=== PATIENT | male | born 1985 | race Hispanic/Latino ===

== ENCOUNTER 2021-01-01 16:10 | Outpatient (CLI) | payer OTHER, SELFPAY | END 2021-01-01 16:11 | disposition home or self-care (01) | LOC: ANHCOVIDVC 16:11 | DX: Z23 Encounter for immunization (principal) | CPT/HCPCS: 0001A; 91300 ==

== ENCOUNTER 2021-01-22 16:03 | Outpatient (CLI) | payer OTHER, SELFPAY | END 2021-01-22 16:04 | disposition home or self-care (01) | LOC: ANHCOVIDVC 16:03 | DX: Z23 Encounter for immunization (principal) | CPT/HCPCS: 0002A; 91300 ==

== ENCOUNTER 2025-04-29 15:52 | Emergency (ER) | payer OTHER, SELFPAY ==
--- NOTE | ~2025-04-29 | XR_ITS ---
Exam: X-ray ankle right minimal and 3 views. CLINICAL HISTORY: Swelling, pain, possible infection. TECHNIQUE: 4 images of the right ankle were obtained. Comparisons: None. FINDINGS: Soft tissue swelling about the right ankle. No fracture. No dislocation. Talar dome is unremarkable. Small posterior calcaneal spur. IMPRESSION: 1. No acute bony abnormality. If symptoms persist or worsen, consider a short-term follow-up study or additional imaging for furthe r assessment. Reviewed, dictated and finalized at location A. IMPRESSION: 1. No acute bony abnormality. If symptoms persist or worsen, consider a short-term follow-up study or additio nal imaging for further assessment.
--- OUTSIDE RECORDS SUMMARY | 2025-04-29 15:54 | XMS_ITS | Clinical Summary ---
Author Organization [facility] Address [address] Attn: Epic [place] [address] Care Team Providers Care Landscape And Yardwork Laborer Name Role Phone Unavailable Primary Care Provider Unavailabl e Social History Tobacco Use Types Packs/Day Years Used Date Smoking Tobacco: Never Assessed Sex and Gender Information Value Date Recorded Sex Assigned at Not on file Legal Sex Male 11:15 PM CDT Gender Identity Not on file Sexual Orientation Not on file Plan of Treatment Health Maintenance Due Date Last Done Comments HPV VACCINES (1 - Male 3-dose series) 2001 DTAP/TDAP/TD VACCINES (1 - Tdap) 2005 HEPATITIS B VACCINES (1 of 3 - 19+ 3-dose series) 02/18 INFLUENZA VACCINE (#1) 2025
--- OUTSIDE RECORDS SUMMARY | 2025-04-29 15:54 | XMS_ITS | Clinical Summary ---
Author Organization [facility] Address [address] [address] Care Team Providers Care Tumbling Barrel Painter Name Role Phone Hedy Hodgson Primary Care Provider [phone]- [phone] Source Comments [facility],non-owned Affiliates and Associated Physician Practices is amultiple site organization consisting of ambulatory clinics and hospital sitesin [place], [place], [place] and [place]. This disclosure is being madepursuant to the Care Everywhere program and may not contain all information available regarding this patient. Last updated 18.[facility] Allergies No known active allergies Medications * Be aware that medications may not be up to date on this document. Alwaysverify current medications with the patient. predniSONE (DELTASONE) 10 MG tablet Take 50 mg daily x 3 days, 40 mg daily x 3 days, 30 mg daily x 3 days, 20 mg daily x 3 days, 10 mg daily x 3 days. Take with food. 45 tablet 02/19/2018 Active triamcinolone acetonide (KENALOG) 0.1 % ointment Apply to affected area 3 times daily 15 g 02/19/2018 Active Active Problems No known active problems Family History Medical History Relation Name Comments Diabetes - Type 2 Maternal Grandmother Relation Name Status Comments Father Alive Maternal Grandmother Mother Alive Social History Tobacco Use Types Packs/Day Years Used Date Smoking Tobacco: Never Smokeless Tobacco: Never Alcohol Use Standard Drinks/Week Comments Yes 0 (1 standard drink = 0.6 oz pur e alcohol) 3 nights a week Sex and Gender Information Value Date Recorded Sex Assigned at Not on file Legal Sex Male 8:10 AM CDT Gender Identity Not on file Sexual Orientation Not on file Last Filed Vital Signs Vital Sign Reading Time Taken Comments Blood Pressure 126/76 03/02/2018 1:45 PM CDT Pulse 82 03/02/2018 1:45 PM CDT Temperature 36.9 C (98.4 F) 03/02/2018 1:45 PM CDT Respiratory Rate 20 03/02/2018 1:45 PM CDT Oxygen Saturation 96% 03/02/2018 1:45 PM CDT Inhaled Oxygen Concentration - - Weight 96.6 kg (213 lb) 03/02/2018 1:45 PM CDT Height 188 cm (6' 2) 03/02/2018 1:45 PM CDT Body Mass Index 27.35 03/02/2018 1:45 PM CDT Plan of Treatment Health Maintenance Due Date Last Done Comments HIV SCREENING 2001 HEPATITIS C SCREENING 03/04/2004 DTAP/TDAP/TD VACCINES (1 - Tdap) 2005 HEPATITIS B VACCINE (1 of 3 - 19+ 3-dose series) 2005 HPV VACCINE (1 - 3-dose SCDM series) 2013 COVID-19 VACCINE (1 - 2023-2 5 season) 2024 DEPRESSION SCREENING 09/19/2024 INFLUENZA VACCINE (#1) 2025 ZOSTER VACCINE (1 of 2) 2036 HIB VACCINE Aged Out No longer eligi ble based on patient's age to complete this topic MENINGOCOCCAL (Group B) VACC INE SHARED DECISION-MAKING Aged Out No longer eligibl e based on patient's age to complete this topic MENINGOCOCCAL GROUPS A/C/Y/W VACCINE Aged Out No longer eligible b ased on patient's age to complete this topic PNEUMOCOCCAL VACCINE Aged Out No long er eligible based on patient's age to complete this topic Insurance [facility] Care Teams Tumbling Barrel Painter Relationship Specialty Start Date End Date Hedy Hodgson DO [address] [place] [address] PCP - General Family Medicine 03/02/18
--- OUTSIDE RECORDS SUMMARY | 2025-04-29 15:54 | XMS_ITS | Clinical Summary ---
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 Gender Identity Not on file Sexual Orientation Not on file Plan of Treatment Health Maintenance Due Date Last Done Comments Hepatitis C Virus (HCV) Screening 1986 TdaP Immunization 1986 Hepatitis B Immunization (1 of 3 - 19+ 3-dose series) 2005 Human Papillomavirus (HPV) Immunization (1 - 3-dose SCDM series) 2013 SARS-COV-2 Immunization ( season) 2024 01/22/2021, 01/01/2021 Influenza Immunization (#1) 2025 Respiratory Syncytial Virus (RSV) Immunization (Adult) (1 - 1-dose 75+ series) 2061 Meningococcal Immunization (ACWY) Aged Out No longer eligible b ased on patient's age to complete this topic Pneumococcal Immunization Combined Aged Out No longer eligible b ased on patient's age to complete this topic Rotavirus Immunization Aged Out No lo nger eligible based on patient's age to complete this topic
--- OUTSIDE RECORDS SUMMARY | 2025-04-29 15:54 | XMS_ITS | Clinical Summary ---
Author Organization [facility] Address [facility] [place] [address] Care Team Providers Care Code Enforcement Inspector Name Role Phone Unavailable Primary Care Provider Unavailabl e Social History Tobacco Use Types Packs/Day Years Used Date Smoking Tobacco: Never Assessed Sex and Gender Information Value Date Recorded Sex Assigned at Not on file Legal Sex Male 7:44 PM CDT Gender Identity Not on file Sexual Orientation Not on file Plan of Treatment Health Maintenance Due Date Last Done Comments Annual Physical 1989 Hepatitis C 2004 DTaP, Tdap and Td Vaccines ( 1 - Tdap) 2005 Hepatitis B Vaccines (1 of 3 - 19+ 3-dose series) 2005 HPV Vaccines (1 - 3-dose SCD M series) 2013 COVID-19 Vaccine ( - 2023-2 5 season) 2024 Meningococcal B Vaccine Aged Out No l onger eligible based on patient's age to complete this topic Meningococcal Vaccine Aged Out No shanelle kelley eligible based on patient's age to complete this topic Pneumococcal Vaccine: Pediat rics (0 to 5 Years) and At-Risk Patients (6 to 49 Years) Aged Out No longer eligible b ased on patient's age to complete this topic RSV Immunizations Under 20 Months Aged Out No longer eligible based on patient's age to complete this topic
--- NOTE | 2025-04-29 15:55 | ED_ITS ---
HPI - Wound/Laceration General Chief Complaint: Wound/Laceration Stated Complaint: rooster injury Time Seen by Provider: 04/29/25 15:55 Source: patient Mode of arrival: ambulatory Limitations: no limitations History of Present Illness HPI narrative: Patient is a 40-year-old male who presents with right ankle pain and swelling for 2 days. Patient was spurred by rooster prior to symptoms starting. Patient states he cleaned it and has not noticed any drainage or significant redness or warmth. Just states over the last day it has significantly gotten more swollen where it is painful to walk. Has taken ibuprofen. Related Data Allergies Allergy/AdvReac Type Severity Reaction Status Date / Time No Known Allergies Allergy Verified 04/29/25 16:02 Review of Systems 2 Review of Systems: All systems reviewed & are unremarkable except as noted in HPI and below Constitutional: Constitutional: Denies body ache(s), Denies chills, Denies fatigue, Denies fever(s), Denies headache(s), Denies malaise and Denies weakness Eyes: Eyes: Denies blurry vision, Denies irritation and Denies loss of vision ENT: Denies otalgia, Denies headache(s), Denies nasal discharge, Denies sinus pain and Denies sore throat Cardiovascular: Cardiovascular: Denies chest pain, Denies irregular heart rhythm and Denies dyspnea Respiratory: Respiratory: Denies dyspnea Gastrointestinal: Gastrointestinal: Denies abdominal pain, Denies melena, Denies hematochezia, Denies diarrhea, Denies nausea and Denies vomiting Musculoskeletal: Musculoskeletal: Denies back pain, Denies myalgias, Reports arthralgias and Reports joint swelling Integumentary/Breasts: Skin/Breast: Denies pruritus, Denies rash and Reports wounds Neurologic: Denies headache(s), Denies loss of vision and Denies weakness Psychiatric: Psychiatric: Reports no additional psychiatric complaints Endocrine: Endocrine: Denies fatigue PMFSH Comments At time of signature, agree with nursing past medical, surgical, social and family history. There is no relevant family history pertinent to the presenting complaint. Exam 2 Const: General: cooperative, healthy appearing, comfortable, no acute distress and well nourished Nutritional Appearance: well nourished O rientation/consciousness: patient oriented x3 Limitations: no limitations HENMT: Head: normal to inspection, normocephalic and atraumatic Ears: h earing grossly normal bilaterally and external ears normal Face/Nose/Sinus: N ormal external nose present, normal facial exam and face symmetric Face and sinus: normal facial exam and face symmetric Mouth: Yes lip normal Eyes: General: appearance normal, both eyes and all related structures A lignment and Position: alignment normal and position normal Periorbital: p eriorbital findings normal Eyelids: eyelids normal Pupils: Equal, round and reactive pupils present EOM: EOMs intact bilaterally Neck: Neck: normal visual inspection, full ROM and supple Chest: Chest palpation & inspection: normal inspection of the chest Resp: Effort & Inspection: normal respiratory effort and able to speak in complete sentences Auscultation: clear to auscultation bilaterally Cardio: Rate: regular rate Rhythm: regular rhythm Heart sounds: S1 normal heart sound present and S2 normal heart sound present GI: Inspection: normal to inspection Skin: General skin exam: normal color and no rashes or lesions noted Neuro: General: patient oriented x3 and moves all extremities Cranial nerves: Yes Equal, round and reactive pupils present Speech: normal speech Gait exam (Neuro): Normal gait present Extrem: General: normal to inspection, full ROM and no edema Right lower extremity: lower leg Details: normal to inspection and no edema, ankle Details: tenderness Location: of the lateral malleolus, swelling Details: laterally, normal ROM and abrasion lateral Details: single (.5 cm puncture sada), medial Details: single (2 cm superficial linear abrasion); no unusual warmth and achilles tendon exam normal and foot Details: normal capillary refill, toes with normal ROM, edema Location: of the lateral foot Location: proximally and vascular exam Details: dorsalis pedis pulse present and normal capillary refill; no tenderness Ankle/foot/toe images: 1. puncture wound 2. 2 cm superficial linear abrasion 3. significant swelling with mild erythe ma and warmth. tenderness at malleolus Psych: Appearance: grossly normal and well kempt Mental Status: mental status grossly normal Speech and movement: Normal speech and movement present Affect: normal affect Attitude: cooperative Thought process: Normal thought process present Course Course Emergency Course: Patient is aware of diagnosis, understands and agrees to treatment plan. Anticipatory guidance given. Patient agrees to follow-up as directed and is aware of reasons to seek care at the emergency department. Portions of this record may have been created with voice recognition software Level of Care: Express Care Visit Vital Signs Vital signs: Vital Signs Temperature 36.2 C L 04/29/25 16:01 Pulse Rate 57 L 04/29/25 16:01 Respiratory Rate 18 04/29/25 16:01 Blood Pressure 135/75 04/29/25 16:01 Pulse Oximetry 100 04/29/25 16:01 Oxygen Delivery Room Air 04/29/25 16:01 Temperature 36.2 C L 04/29/25 16:01 Pulse Rate 57 L 04/29/25 16:01 Respiratory Rate 18 04/29/25 16:01 Blood Pressure 135/75 04/29/25 16:01 Pulse Oximetry 100 04/29/25 16:01 Oxygen Delivery Room Air 04/29/25 16:01 Reviewed MDM - Wound/Laceration MDM Narrative Medical decision making narrative: Patient is able to bear weight and ambulate with mild pain. No surface of trauma, overlying erythema or warmth. The R ankle is with obvious swelling when comparing to the L. Patient has no pain with dorsiflexion, plantar flexion, eversion, and inversion. Tenderness to medial ankle on palpation. Motor and neurovascular status intact. Tetanus shot updated an Agusto wrap applied. Will cover patient with antibiotics for cellulitis. X-ray has no indication of osteomyelitis Pt well hydrated appearing, in no respiratory distress, hemodynamically stable. Recommend supportive care. The patient is stable at time of discharge the clinical impression was discussed and the patient was given the opportunity to ask questions, which were addressed as completely as possible given the information available at present. Anticipatory guidance and return to care precautions were discussed and the importance of primary care follow-up was stressed and encouraged. The patient voiced understanding of the plan, indications to return, and the need for follow-up. Exam findings show no acute concerns or changes Patient is appropriate for outpatient treatment and follow-up. Differential Diagnosis Differential diagnosis: Likely abrasion and other (Cellulitis, ankle sprain, osteomyelitis, puncture wound) Imaging Data Radiologist's impression: Exam: X-ray ankle right minimal and 3 views. CLINICAL HISTORY: Swelling, pain, possible infection. TECHNIQUE: 4 images of the right ankle were obtained. Comparisons: None. FINDINGS: Soft tissue swelling about the right ankle. No fracture. No dislocation. Talar dome is unremarkable. Small posterior calcaneal spur. IMPRESSION: 1. No acute bony abnormality. If symptoms persist or worsen, consider a short-term follow-up study or additional imaging for further assessment. Discharge Plan Discharge Clinical Impression: Ankle swelling Qualifiers: Laterality: right Qualified Code(s): M25.471 - Effusion, right ankle Cellulitis Qualifiers: Site of cellulitis: extremity Site of cellulitis of extremity: lower extremity Laterality: right Qualified Code(s): L03.115 - Cellulitis of right lower limb Pecked by chicken Qualifiers: Encounter type: initial encounter Qualified Code(s): W61.33XA - Pecked by chicken, initial encounter Patient Disposition: Home Condition: Stable Instructions: Cellulitis (ED) Additional Instructions: Clean with soap and water only; Avoid using alcohol and peroxide. Keep covered during the day. Use Bactroban antibiotic daily. Elevate the affected area if possible Alternate Tylenol/ibuprofen for as needed for pain Acetaminophen(Tylenol) 650- 1000mg every 4-6hours with max of 4000mg/day. Nonsteroidal anti-inflammatory agent (NSAIDs-ibuprofen): 400mg every 4-6hours with max 2400mg/day Apply moist heat 3-4 times daily for 10-15 minutes. Take antibiotic until it's gone. Please schedule a follow up visit with your personal physician for further evaluation and treatment within 3-5days OR if your symptoms persist, change or worsen significantly before you can contact your personal physician then please, without delay, go to the emergency department for further evaluation. If you experience any worsening redness, swelling, streaking (red lines), fever or chills please go to the ER Patient Language: Faroese Prescriptions: New mupirocin 2 % ointment 1 applic topical BID Qty: 15 0RF amoxicillin-pot clavulanate 875-125 mg tablet 1 tablet PO Q12H 10 Days Qty: 20 0RF Follow-up/Referrals: Maged Jimenez MD [Physician] - 3 Days
[2025-04-29 16:01] VITALS: BP 135/75; PULSE 57; RESP 18; TEMP 36.2; O2SAT 100
[2025-04-29] MEDS: TETANUS,DIPHTHERIA,AC PERTUSSIS ADULT (0.5 ML) BOOSTRIX IM (16:28)
== END 2025-04-29 16:53 | disposition home or self-care (01) ==
PROVIDERS: Emergency Provider Nurse Practitioner Family; Referring Provider Emergency Medicine
DX: M25.471 Effusion, right ankle (principal); L03.115 Cellulitis of right lower limb; S91.031A Puncture wound without foreign body, right ankle, initial encounter; W61.39XA Other contact with chicken, initial encounter; Z23 Encounter for immunization
CPT/HCPCS: 73610; 90471; 90715; 99203; G0463

== ENCOUNTER 2025-07-05 09:45 | Emergency (ER) | payer OTHER, SELFPAY ==
[2025-07-05 09:53] VITALS: BP 115/70; PULSE 70; RESP 18; TEMP 35.9; O2SAT 99
--- OUTSIDE RECORDS SUMMARY | 2025-07-05 10:12 | XMS_ITS | Clinical Summary ---
Author Organization [facility] Address [facility] [place] [address] Care Team Providers Care Promotions Officer Name Role Phone Unavailable Primary Care Provider [...] COVID-19 Vaccine ( - 2023-2 5 season) 2025 Influenza Adult (#1) 2025 Meningococcal B Vaccine Aged Out No l [...]
--- OUTSIDE RECORDS SUMMARY | 2025-07-05 10:12 | XMS_ITS | Clinical Summary ---
Author Organization [facility] Address [address] [place] [address] Care Team Providers Care Supervisor Nurse Name Role Phone Hdey Hodgson Primary Care Provider +1- [phone] Source Comments [facility],non-owned Affiliates and Associated Physician Practices is amultiple site organization consisting of ambulatory clinics and hospital sitesin [place], [place], [place] and [place]. This disclosure is being madepursuant to the Care Everywhere program and may not contain all information available regarding this patient. Last updated 18.[facility] Allergies No known active allergies Medications * [...] VACCINE (1 - 3-dose SCDM series) 2013 DEPRESSION SCREENING 09/19/2024 COVID-19 VACCINE (1 - 2023-2 5 season) 2025 INFLUENZA VACCINE (#1) 2025 ZOSTER VACCINE (1 [...] patient's age to complete this topic Insurance [facility] Care Teams Supervisor Nurse Relationship Specialty Start Date End Date Hedy Hodgson DO [address] [place] [address] PCP - General Family Medicine 03/02/18
--- OUTSIDE RECORDS SUMMARY | 2025-07-05 10:12 | XMS_ITS | Clinical Summary ---
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
--- OUTSIDE RECORDS SUMMARY | 2025-07-05 10:12 | XMS_ITS | Clinical Summary ---
Author Organization [facility] Address [address] Attn: Epic Prel[place] [address] Care Team Providers Care Gamb Cutter Name Role Phone Unavailable Primary Care Provider Unavailabl e Social History Tobacco Use Types Packs/Day Years Used Date Smoking Tobacco: Never Assessed Sex and Gender Information Value Date Recorded Sex Assigned at Not on file Legal Sex Male 11:15 PM CDT Gender Identity Not on file Sexual Orientation Not on file Plan of Treatment Health Maintenance Due Date Last Done Comments DTAP/TDAP/TD VACCINES (1 - Tdap) 2005 HEPATITIS B VACCINES (1 of 3 - 19+ 3-dose series) 02/18 HPV VACCINES (1 - 3-dose SCDM series) 2013 INFLUENZA VACCINE (#1) 2025
--- NOTE | 2025-07-05 10:26 | ED.URI ---
HPI - URI/Sore Throat General Chief Complaint: Upper Respiratory Infection Stated Complaint: cough Time Seen by Provider: 07/05/25 10:15 Source: patient and RN notes reviewed Mode of arrival: ambulatory Limitations: no limitations History of Present Illness HPI Narrative: 40-year-old male patient presents Express Care complaining of upper respiratory symptoms for approximately 2 weeks. Patient reports of a dry/intermittently productive cough, nasal drainage, congestion. Patient denies any fevers, aches, chills, nausea vomiting, diarrhea, chest pain, difficulty breathing, abdominal pain, or any other symptoms. Patient taking [id number] cold/flu medications with some relief. Patient reports cough is worse at night. Related Data Allergies Allergy/AdvReac Type Severity Reaction Status Date / Time No Known Allergies Allergy Verified 07/05/25 10:04 Review of Systems Review of Systems: CONSTITUTIONAL: Denies fever, chills, body aches, or sweats. EYES: Denies visual changes, redness, or discharge. ENT: Positive for congestion. Negative for rhinorrhea, sore throat, or otalgia. CARDIOVASCULAR: Denies chest pain, palpitations, or edema. RESPIRATORY: Positive for cough. Negative for dyspnea. GASTROINTESTINAL: Denies abdominal pain, nausea, vomiting, or diarrhea. GENITOURINARY: Denies dysuria or hematuria. SKIN: Denies rash or itching. MUSCULOSKELETAL: Denies back pain, joint pain, or myalgia. NEUROLOGIC: Denies headache, numbness, or weakness. PSYCHIATRIC: Denies anxiety or depression. All other systems reviewed are negative, except as documented in HPI. PMFSH Comments At the time of my signature, I reviewed and agree with the nursing past medical, surgical, social, and family history. There is no relevant family history pertinent to the patient complaint. Exam Narrative: GENERAL: This is a well-nourished, well-developed adult, in no apparent distress. They are non ill-appearing, nontoxic appearing. HEAD: normocephalic, atraumatic. EYES: Sclera clear/white. Vision is grossly intact. Conjunctiva normal bilaterally. Extraocular movements intact. EARS: External ears normal, auditory canals clear and without drainage, TMs without erythema or perforation. Hearing grossly intact. NOSE: External nose normal with no obvious nasal discharge, nasal turbinates erythematous, no rhinorrhea. THROAT: Mucous membranes moist, posterior pharynx edematous without erythema, no exudate. Uvula is midline. Postnasal drip present. NECK: Neck supple, non-tender without lymphadenopathy, masses or thyromegaly. CARDIOVASCULAR: Regular rate and rhythm without murmurs, gallops, or rubs. RESPIRATORY: Clear to auscultation. Breath sounds equal bilaterally. No wheezes, rales, or rhonchi. SKIN: warm, Dry, intact with no suspicious lesions or rash, good texture and turgor. NEURO: awake, alert, and oriented to person, place and time. There were no obvious focal neurologic abnormalities. EXTREMITIES: No joint tenderness, effusion, or edema noted. BACK: Nontender without deformity. Course Course Emergency Course: Portions of this record may have been created with voice recognition software Level of Care: Express Care Visit Vital Signs Vital signs: Vital Signs Temperature 96.6 F L 07/05/25 09:53 Pulse Rate 70 07/05/25 09:53 Respiratory Rate 18 07/05/25 09:53 Blood Pressure 115/70 07/05/25 09:53 Pulse Oximetry 99 07/05/25 09:53 Oxygen Delivery Room Air 07/05/25 09:53 Temperature 96.6 F L 07/05/25 09:53 Pulse Rate 70 07/05/25 09:53 Respiratory Rate 18 07/05/25 09:53 Blood Pressure 115/70 07/05/25 09:53 Pulse Oximetry 99 07/05/25 09:53 Oxygen Delivery Room Air 07/05/25 09:53 MDM - URI/Sore Throat MDM Narrative Medical decision making narrative: Given patient's length of symptoms likely has a bacterial sinusitis. Will treat with Augmentin. Discussed physical exam findings. Advised supportive measures and signs/symptoms to go to the ER. Pt is appropriate for outpt treatment and f/u. Differential Diagnosis Differential diagnosis: Likely upper respiratory infection, sinusitis, viral infection and pharyngitis Discharge Plan Discharge Clinical Impression: Sinusitis Patient Disposition: Home Condition: Stable Instructions: Antibiotic Form, Sinusitis (ED) Additional Instructions: Take the antibiotics as directed and complete the course even if you start to feel better. You may use a Neti pot saline rinse 3 times a day with lukewarm distilled water Continue to take Tylenol or Motrin as needed for pain or fevers. Follow instructions on the bottle. Use a humidifier or vaporizer at night. Drink plenty of water. 8-10 glasses per day. Use flonase 2 times per day for 5 days then as needed Take mucinex 2 times per day and be sure to take with 8oz of water. Follow up with Primary provider in 3-5 days Please go to the ER if he develops any difficulty breathing, chest pains, nausea, vomiting, worsening symptoms, or any other concerns Patient Language: Taiwanese Prescriptions: New amoxicillin-pot clavulanate 875-125 mg tablet 1 tablet PO Q12H 7 Days Qty: 14 0RF Follow-up/Referrals: UNKNOWN,DOCTOR [Primary Care Provider] Time of Disposition: 10:26
== END 2025-07-05 10:25 | disposition home or self-care (01) ==
DX: J32.9 Chronic sinusitis, unspecified (principal)
CPT/HCPCS: 99213; G0463

== ENCOUNTER 2025-07-12 21:22 | Emergency (ER) | payer OTHER, SELFPAY ==
[2025-07-12 21:23] VITALS: BP 143/87; PULSE 100; RESP 18; TEMP 36.1; O2SAT 96
--- OUTSIDE RECORDS SUMMARY | 2025-07-12 21:24 | XMS_ITS | Clinical Summary ---
Author Organization [email or web address] Address [address] [place] [address] Care Team Providers Care Joist Setter Name Role Phone Hedy Hodgson Primary Care Provider +1- [phone] Source Comments [email or web address],non-owned Affiliates and Associated Physician Practices is amultiple site organization consisting of ambulatory clinics and hospital sitesin [place], [place], [place] and [place]. This disclosure is being madepursuant to the Care Everywhere program and may not contain all information available regarding this patient. Last updated 18.[email or web address] Allergies No known active allergies Medications * [...] to complete this topic Insurance [facility] Care Teams Joist Setter Relationship Specialty Start Date End Date Hedy Hodgson DO [address] [facility] [address] [place] [address] PCP - General Family Medicine 03/02/18
--- OUTSIDE RECORDS SUMMARY | 2025-07-12 21:24 | XMS_ITS | Clinical Summary ---
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
--- NOTE | 2025-07-12 21:39 | PC.NURSE ---
patient to desk stating he couldn't wait. ambulatory at time of leaving.
--- OUTSIDE RECORDS SUMMARY | 2025-07-12 22:03 | XMS_ITS | Clinical Summary ---
Author Organization 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
--- OUTSIDE RECORDS SUMMARY | 2025-07-12 22:03 | XMS_ITS | Clinical Summary ---
Author Organization [facility] Address [address] [place] [address] Care Team Providers Care District Claims Manager Name Role Phone Hedy Hodgson Primary Care Provider +1- [phone] Source Comments [facility],non-owned Affiliates and Associated Physician Practices is amultiple site organization consisting of ambulatory clinics and hospital sitesin [place], [place], [place] and [place]. This disclosure is being madepursuant to the Care Everywhere program and may not contain all information available regarding this patient. Last updated 18.[facility] Allergies No known active allergies Medications * [...] patient's age to complete this topic Insurance [facility] Care Teams District Claims Manager Relationship Specialty Start Date End Date Hedy Hodgson DO [address] [facility] [address] [place] [address] PCP - General Family Medicine 03/02/18
== END 2025-07-12 22:23 | disposition left against medical advice (07) ==
LOC: ANHED 22:00
DX: R07.89 Other chest pain (principal)
CPT/HCPCS: 99199

== ENCOUNTER 2025-07-13 07:57 | Emergency (ER) | payer OTHER, SELFPAY ==
--- NOTE | ~2025-07-13 | XR_ITS ---
Examination: XR chest 2V Clinical History: rib pain after coughing last night Comparison: None Technique: PA and Lateral Findings: Cardiomediastinal silhouette normal size and configuration. Small patchy opacity left lung base. No acute bony abnormality. IMPRESSION: 1. Left basilar atelectasis and/or airspace disease. Reviewed, dictated and finalized at location R.
--- OUTSIDE RECORDS SUMMARY | 2025-07-13 07:59 | XMS_ITS | Clinical Summary ---
Author Organization [facility] Address [address] Attn: Epic [place] [address] Care Team Providers Care Jack Winder Name Role Phone Unavailable Primary Care Provider [...]
--- OUTSIDE RECORDS SUMMARY | 2025-07-13 08:00 | XMS_ITS | Clinical Summary ---
Author Organization [email or web address] Address [address] [place] [address] Care Team Providers Care Machinist Automotive Name Role Phone Hedy Hodgson Primary Care Provider +1- [phone] Source Comments [email or web address],non-owned Affiliates and Associated Physician Practices is amultiple site organization consisting of ambulatory clinics and hospital sitesin [place], [place], [place] and [place]. This disclosure is being madepursuant to the Care Everywhere program and may not contain all information available regarding this patient. Last updated 18.[email or web address] Allergies No known active allergies Medications * [...] to complete this topic Insurance [facility] Care Teams Machinist Automotive Relationship Specialty Start Date End Date Hedy Hodgson DO [address] [facility] [address] [place] [address] PCP - General Family Medicine 03/02/18
--- OUTSIDE RECORDS SUMMARY | 2025-07-13 08:00 | XMS_ITS | Clinical Summary ---
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
[2025-07-13 08:03] VITALS: BP 166/83; PULSE 75; RESP 20; TEMP 36.4; O2SAT 97
[2025-07-13 08:05] VITALS: O2SAT 97
--- NOTE | 2025-07-13 08:06 | ECG_ITS ---
Test Date: 2025-07-13 08:09:44 Measurements Intervals Shorter Rate: 86 P: 38 MS: 159 QRS: 67 QRSD: 92 T: 54 QT: 354 QTc: 424 Interpretive Statements SINUS RHYTHM BASELINE WANDER- II, III NORMAL ECG No previous ECG available for comparison Electronically Signed On 07-13-2025 08:27:20 CDT by Willie Geller D.O.
--- NOTE | 2025-07-13 08:11 | ED_ITS ---
HPI - URI/Sore Throat General Chief Complaint: Upper Respiratory Infection Stated Complaint: URI sx x 3 weeks, rib pain Time Seen by Provider: 07/13/25 08:00 History of Present Illness HPI Narrative: For last few weeks patient has had cold symptoms, and a persistent cough, yesterday while he was coughing he feels like something popped in his left flank, and now is having pretty sharp pain whenever he moves a certain way or coughs. No chest pain or shortness of breath at rest Related Data Allergies Allergy/AdvReac Type Severity Reaction Status Date / Time No Known Allergies Allergy Verified 07/13/25 08:06 Review of Systems Review of Systems: All systems reviewed & are unremarkable except as noted in HPI and below Exam Narrative: EXAMINATION OF ORGAN SYSTEMS/BODY AREAS: Constitutional: Vital signs per nursing GENERAL:[No acute distress, non-toxic appearing.] HEAD: Normal with no signs of head trauma. EYES: EOMI, conjunctiva normal ENT: Hearing grossly intact LUNGS: Nonlabored breathing. Clear to auscultation bilaterally HEART: [Regular rate and rhythm] ABD: [Soft], [nontender to palpation] EXT: Normal range of motion; some tenderness in the left flank/rib SKIN: [No rashes or lesions.] NEURO: [Alert and oriented x 3. No gross focal sensory or strength deficits.] PSYCH: Normal affect Course Vital Signs Vital signs: Vital Signs Temperature 97.6 F 07/13/25 08:03 Pulse Rate 75 07/13/25 08:03 Respiratory Rate 20 07/13/25 08:03 Blood Pressure 166/83 H 07/13/25 08:03 Pulse Oximetry 97 07/13/25 08:03 Oxygen Delivery Room Air 07/13/25 08:03 Temperature 97.6 F 07/13/25 08:03 Pulse Rate 75 07/13/25 08:03 Respiratory Rate 20 07/13/25 08:03 Blood Pressure 166/83 H 07/13/25 08:03 Pulse Oximetry 97 07/13/25 08:05 Oxygen Delivery Room Air 07/13/25 08:05 MDM - URI/Sore Throat MDM Narrative Medical decision making narrative: 40-year-old male presenting with left-sided rib pain after violent coughing yesterday. No chest pain, at rest he has no issues is with certain movements that he has the pain again, some tenderness to the left flank otherwise well appearing with clear lungs here. No lower extremity swelling or pain, he is PERC negative. EKG - 12-Lead: Performed at 0809. Interpreted by me. [Sinus rhythm]. Rate 86. [Normal] axis. WI-interval [normal]. QRS duration [normal]. QTc [normal]. [No ST segment elevation or depression]. [T-wave normal]. Impression: No EKG evidence of acute ischemia or dysrhythmia. Chest x-ray does appear to have a possible pneumonia. I will start him on antibiotics, findings discussed with him, I will also give him pain medicine and prescriptions, for possible muscle sprain. Patient agreeable to plan with return precautions, follow-up to PCP given Discharge Plan Discharge Clinical Impression: Pneumonia, Rib pain Patient Disposition: Home Condition: Stable Instructions: Antibiotic Form, Pneumonia (ED) Additional Instructions: Please take the medications as prescribed, and follow up with a primary care doctor; you can always return for any further issues especially if you develop more pain, shortness of breath, or anything else concerning. Patient Language: Kiswahili Prescriptions: New amoxicillin 500 mg capsule 1,000 mg PO Q8H 5 Days Qty: 30 0RF azithromycin 250 mg tablet 250 mg PO DAILY 4 Days Qty: 4 0RF Rx Instructions: start on day 2 of therapy methocarbamol 750 mg tablet 750 mg PO TID PRN (Reason: muscle spasm) Qty: 30 0RF lidocaine 5 % adhesive patch,medicated 1 patch topical DAILY Qty: 15 0RF Rx Instructions: leave on most painful area for up to 12 hrs ibuprofen 600 mg tablet 600 mg PO TID PRN (Reason: fever or pain) Qty: 30 0RF No Action amoxicillin-pot clavulanate 875-125 mg tablet 1 tablet PO Q12H 7 Days Qty: 14 0RF Follow-up/Referrals: Jethro Hay MD [Physician, Family Practice] - 2 Days UNKNOWN,DOCTOR [Non-Staff]
[2025-07-13] MEDS: LIDOCAINE 5% PATCH 1 PATCH TRANSDERM (08:19)
[2025-07-13] MEDS: KETOROLAC 30 MG/ML VIAL (*BKC) IM (08:19)
[2025-07-13] MEDS: AZITHROMYCIN 500 MG TABLET PO (09:27)
[2025-07-13] MEDS: AMOXICILLIN 500 MG CAPSULE 1000 MG PO (09:27)
== END 2025-07-13 10:02 | disposition home or self-care (01) ==
PROVIDERS: Emergency Provider Emergency Medicine
DX: J18.9 Pneumonia, unspecified organism (principal); R07.89 Other chest pain
CPT/HCPCS: 71046; 93005; 96372; 99283; A9270; J1885

== ENCOUNTER 2025-08-07 14:55 | Outpatient (CLI) | payer OTHER, SELFPAY ==
--- NOTE | ~2025-08-07 | CT_ITS ---
EXAMINATION: CT sinuses without contrast: DATE: 08/07/2025 INDICATION: Chronic sinusitis. TECHNIQUE: Imaging was performed through the sinuses without contrast and reviewed in multiple projections. Radiation dose 273 NG MGY CM. COMPARISON: None. FINDINGS: The maxillary sinuses and sinus ostia are clear. Sphenoid sinus is normal. Ethmoid and frontal sinuses are free of acute processes. No focal lesions of the nasal cavity. Mastoids and middle ear cavity are clear. IMPRESSION: 1. No significant CT abnormality of paranasal sinuses are seen. No focal lesions within the nasal cavity. Reviewed, dictated and finalized at location T. AIR FURNACE INSTALLER REPAIRER IMPRESSION: 1. No significant CT abnormality of paranasal sinuses are seen. No focal lesion s within the nasal cavity.
== END 2025-08-07 14:56 | disposition home or self-care (01) ==
LOC: MICIMG 14:56
PROVIDERS: PCP Family Medicine; Visit Provider Otolaryngology Otolaryngology/Facial Plastic Surgery
DX: J32.9 Chronic sinusitis, unspecified (principal)
CPT/HCPCS: 70486